=== PATIENT | male | born 1960 | race Two or more races ===

== ENCOUNTER 2017-02-08 05:53 | Day surgery (SDC) | payer BC ==
[~2017-02-08] VITALS: Ht 175.3 cm; Wt 95.3 kg
[2017-02-08] MEDS ORDERED: NKM (06:24)
[2017-02-08 06:25] VITALS: BP 109/60
[2017-02-08] MEDS ORDERED: LR 1000ml 1,000 ML IVLG SCH (07:00)
[2017-02-08] MEDS ORDERED: Midazolam 2mg/2ml Inj ONE (07:00)
[2017-02-08] MEDS ORDERED: Propofol 10mg/ml 20ml IV ONE (07:00)
[2017-02-08] MEDS ORDERED: fentaNYL 100 mcg/2 mL IV ONE (07:00)
--- NOTE | 2017-02-08 07:17 | Short Stay Surgery H&P ---
History of Present Illness History of Present Illness Chief Complaint See H&P HPI Angela Goldsmith is a 56 year old male who was admitted on for Colon Polyps Patient History Allergies: Coded Allergies: No Known Allergies (Unverified , 02/05/17) PAST MEDICAL HISTORY: Past Surgeries: Social History: Medication History Scheduled No Known Medications* (NKM - No Known Medications*), 0 ., (Reported) Physical Exam Vital Signs Last Vital Signs Date Time Temp Pulse Resp B/P Pulse Ox O2 Delivery O2 Flow Rate FiO2 02/08/17 06:25 98.0 66 18 109/60 97 Room Air Plan Attestation Are the patient's medical conditions optimized for surgery? SAJAN MANUEL Feb 08, 2017 07:17
--- NOTE | 2017-02-08 07:18 | Pre-Procedure Note/Attestation ---
Pre-Procedure Note/Attestation Complete Prior to Procedure Planned Procedure: not applicable Procedure Narrative: colon Indications for Procedure Pre-Operative Diagnosis: h/o polyp Attestation I attest that I discussed the nature of the procedure; its benefits; risks and complications; and alternatives (and the risks and benefits of such alternatives ), prior to the procedure, with the patient (or the patient's legal member service representative). I attest that, if there was a reasonable possibility of needing a blood transfusion, the patient (or the patient's legal member service representative) was given the [facility] standardized written summary, pursuant to the [place] Blood Safety Act ([place] Health and Safety Code # 1645, as amended). I attest that I re-evaluated the patient just prior to the surgery and that there has been no change in the patient's H&P, except as documented below: SAJAN MANUEL Feb 08, 2017 07:18
--- NOTE | 2017-02-08 07:35 | Anethesia Preoperative Eval ---
Anesthesia Pre-op PMH/ROS General Date of Evaluation: Feb 08, 2017 Time of Evaluation: 07:00 ASA Score: ASA 2 Mallampati Score Class I : Soft palate, uvula, fauces, pillars visible Class II: Soft palate, uvula, fauces visible Class III: Soft palate, base of uvula visible Class IV: Only hard plate visible Mallampati Classification: Class II Surgeon: Tammy Diagnosis: polyp Surgical Procedure: colonoscopy Anesthesia History: none Family History: no anesthesia problems Allergies: Coded Allergies: No Known Allergies (Unverified , 02/05/17) Anesthesia Pre-op Phys. Exam Physician Exam Last Vital Signs Date Time Temp Pulse Resp B/P Pulse Ox O2 Delivery O2 Flow Rate FiO2 02/08/17 06:25 98.0 66 18 109/60 97 Room Air Constitutional: NAD Neurologic: CN 2-12 intact Cardiovascular: RRR Respiratory: CTA Airway Exam Mallampati Score: Class II MO: full ROM: full Teeth: intact Anesthesia Pre-op A/P Risk Assessment & Plan Status Change Before Surgery: No Pre-Antibiotics Given Within 1 Hr of Incision: Uriel Santa M.D. Feb 08, 2017 07:35
--- NOTE | 2017-02-08 07:37 | Immediate Post-Op Evaluation ---
Immediate Post-Op Evalulation Immediate Post-Op Evalulation Procedure: Colonoscopy Date of Evaluation: Feb 08, 2017 Time of Evaluation: 08:00 IV Fluids: 200 Blood Products: 0 Estimated Blood Loss: 0 Urinary Output: 0 Blood Pressure Systolic: 114 Blood Pressure Diastolic: 70 Pulse Rate: 65 Respiratory Rate: 16 O2 Sat by Pulse Oximetry: 99 Temperature (Fahrenheit): 98 Pain Score (1-10): 0 Nausea: No Vomiting: No Patient Status: awake, reacts, patent Hydration Status: adequate Given Within 1 Hr of Incision: Uriel Santa M.D. Feb 08, 2017 07:37
--- NOTE | 2017-02-08 07:39 | 48 Hour Post Anesthesia Eval ---
Post Anesthesia Evaluation Procedure: Colonoscopy Date of Evaluation: Feb 08, 2017 Time of Evaluation: 08:00 Blood Pressure Systolic: 114 0: 70 Pulse Rate: 65 Respiratory Rate: 16 Temperature (Fahrenheit): 98 O2 Sat by Pulse Oximetry: 99 Airway: patent Nausea: No Vomiting: No Pain Intensity: 0 Hydration Status: adequate Mental Status/LOC: patient returned to baseline Post-Anesthesia Complications: none Follow-up care needed: patient intructions given Uriel Emmanuel M.D. Feb 08, 2017 07:39
[2017-02-08 07:44] VITALS: BP 116/75
[2017-02-08] MEDS ORDERED: Ketorolac 30mg Inj IV PRN (07:45)
[2017-02-08] MEDS ORDERED: Metoclopramide 10mg/2ml Inj IVP PRN (07:45)
[2017-02-08 07:50] VITALS: BP 120/72
[2017-02-08 07:55] VITALS: BP 112/72
--- NOTE | 2017-02-08 07:56 | Endoscopy Procedure Note ---
Endoscopy Procedure Note Indication for Procedure: h/o polyp Procedures Performed: colonoscopy Operative Findings/Diagnosis: R/L diverticulosis, one descend dim polyp bx, rhoid Specimen: yes Pt Tolerated Procedure Well: Yes Estimated Blood Loss: none Anesthesiologist: see notes Anesthesia: MAC Medication Given: see anesthesia record Implant(s) used?: No 50 yrs or older w/o bx or poly: No 10yrs. F/U not recommended: No If not recommended, why?: Inadequate Prep 10 yrs. F/U needed: No 18 years or older w/prev. colo: Yes <3yrs. since last colonoscopy: No Med reason:<3 yrs.: System Reason:<3 yrs.: Last colonoscopy >= to 3yrs: Yes SAJAN MANUEL Feb 08, 2017 07:56
--- NOTE | 2017-02-08 07:58 | Brief Operative Note ---
Immediate Post Operative Note Operative Note Chief Complaint: h/o polyp Pre-op Diagnosis: h/o polyp Procedure: colon ,Bx Post-op Diagnosis: tics, sub optimal prep, dim polyp, rhoid Surgeon: jaron Anesthesiologist: see attached Anesthesia: MAC Specimen: yes Complications: none Condition: stable Estimated Blood Loss: none Drains: none Implant(s) used?: No SAJAN MANUEL Feb 08, 2017 07:58
[2017-02-08] MEDS ORDERED: fentaNYL 100 mcg/2 mL IV PRN (08:00)
[2017-02-08 08:10] VITALS: BP 109/77
[2017-02-08 08:43] VITALS: BP 124/87
--- NOTE | 2017-02-09 03:30 | Operative Note - Dictated ---
DATE OF OPERATION: 02/08/2017 GASTROENTEROLOGY PROCEDURE REPORT PROCEDURE: Colonoscopy with biopsy. SURGEON: Jo-Ann Munoz M.D. ANESTHESIA: Please see the separate anesthesiologist notes for details. PRE-ENDOSCOPIC DIAGNOSIS: History of colonic polyps. POST-ENDOSCOPIC DIAGNOSES: 1. Suboptimal preparation making visualization difficult and smaller polyps could be missed on this examination. 2. Scattered right-sided and left-sided colonic diverticulosis. 3. Diminutive polyp in the descending colon, status post biopsy removal. 4. Mild internal hemorrhoids. PROCEDURE: The procedure, its risks, indications, alternatives, and possible complications including, but not limited to, bleeding, infection, perforation, , and anesthesia complications were explained to the patient. Informed consent was obtained. The patient was then sedated in the left lateral decubitus position and rectal exam was done. The colonoscope was then introduced in the rectum and advanced to the cecum without difficulty. The cecum was identified by the appearance of the ileocecal valve. The colonoscope was then gradually withdrawn. The mucosa examined carefully. Examination of the colonic mucosa revealed poor colonic preparation with solid stool seen especially in the right colon. Smaller polyps in these areas could therefore be missed. There were scattered diverticulosis of the right colon and left colon, which were photographed. There was a diminutive polyp in the proximal descending colon, which was removed with single biopsy forceps application, which was done twice, which were photographed. There was a diminutive polyp in the proximal descending colon, which was removed with the biopsy forceps. Mild internal hemorrhoids were seen on retroflexion of the rectum. The colonoscope was removed. The patient was sent to recovery in good condition. COMPLICATIONS: None. RECOMMENDATIONS: 1. High-fiber diet. 2. Follow up biopsy results. 3. Outpatient follow up. Jo-Ann Munoz M.D. DR: ZAIDA JOB#: [id number] CC: Jo-Ann Munoz M.D.; Fax#: [phone] [facility]
== END 2017-02-08 08:40 | disposition home or self-care (01) ==
LOC: GAS 05:53
DX: D12.4 Benign neoplasm of descending colon (principal); K64.8 Other hemorrhoids; K57.30 Diverticulosis of large intestine without perforation or abscess without bleeding; Z86.010 Personal history of colon polyps
CPT/HCPCS: 45380; J2250; J2704; J3010; 94003; 94150

== ENCOUNTER 2018-06-30 08:39 | Day surgery (SDC) | payer BC ==
[~2018-06-30] VITALS: Ht 177.8 cm; Wt 90.7 kg
[2018-06-30] VITALS (8 sets, daily range): BP systolic 118–137; BP diastolic 74–80
[~2018-06-30 08:39] MED LIST: LR 1000ml 1,000 ML IVLG SCH; NKM
[2018-06-30] MEDS ORDERED: Lidocaine 1% MPF 10mg/ml 5ml ONE (10:00)
[2018-06-30] MEDS ORDERED: LR 1000ml ONE (10:00)
[2018-06-30] MEDS ORDERED: Propofol 200mg/20ml IV ONE (10:00)
[2018-06-30] MEDS ORDERED: LR 1000ml 1,000 ML IVLG SCH (10:08)
--- NOTE | 2018-06-30 10:12 | Anethesia Preoperative Eval ---
Anesthesia Pre-op PMH/ROS General Date of Evaluation: Jun 30, 2018 Time of Evaluation: 10:01 Anesthesiologist: macario ASA Score: ASA 2 Mallampati Score Class I : Soft palate, uvula, fauces, pillars visible Class II: Soft palate, uvula, fauces visible Class III: Soft palate, base of uvula visible Class IV: Only hard plate visible Mallampati Classification: Class II Surgeon: jaron Diagnosis: blood in stool Surgical Procedure: colonoscopy Anesthesia History: none Social History: current smoker Family History: no anesthesia problems Allergies: Coded Allergies: No Known Allergies (Unverified , 06/30/18) Medications: see eMAR Patient NPO?: Yes Past Medical History Pulmonary: Reports: [facility]UL[facility] Narrative: colonoscopy, tonsillectomy Anesthesia Pre-op Phys. Exam Physician Exam Last Vital Signs Date Time Temp Pulse Resp B/P (MAP) Pulse Ox O2 Delivery O2 Flow Rate FiO2 06/30/18 09:11 97.9 82 18 137/80 99 Room Air Constitutional: NAD Neurologic: CN 2-12 intact Cardiovascular: RRR Respiratory: CTA Gastrointestinal: S/NT/ND Airway Exam Mallampati Score: Class II MO: full Neck: flexible TMD: 2fb ROM: full Anesthesia Pre-op A/P Risk Assessment & Plan Assessment: asa2 Plan: mac Status Change Before Surgery: No Pre-Antibiotics Drug: Luz Maria Correa MD Jun 30, 2018 10:12
[2018-06-30] MEDS ORDERED: fentaNYL 100 mcg/2 mL IV PRN (10:15)
[2018-06-30] MEDS ORDERED: Midazolam 2mg/2ml Inj IVP PRN (10:15)
[2018-06-30] MEDS ORDERED: Atropine Inj 1mg/10ml Syr IV PRN (10:15)
[2018-06-30] MEDS ORDERED: DiphenhydrAMINE 50mg/ml Inj IVP PRN (10:15)
--- NOTE | 2018-06-30 10:31 | Pre-Procedure Note/Attestation ---
Pre-Procedure Note/Attestation Complete Prior to Procedure Planned Procedure: not applicable Procedure Narrative: Endoscopy and Colonoscopy Indications for Procedure Pre-Operative Diagnosis: Anemia, hematochezia, FH of gastric CA Attestation I attest that I discussed the nature of the procedure; its benefits; risks and complications; and alternatives (and the risks and benefits of such alternatives ), prior to the procedure, with the patient (or the patient's legal artist representative). I attest that, if there was a reasonable possibility of needing a blood transfusion, the patient (or the patient's legal artist representative) was given the [facility] standardized written summary, pursuant to the [place] Blood Safety Act ([place] Health and Safety Code # 1645, as amended). I attest that I re-evaluated the patient just prior to the surgery and that there has been no change in the patient's H&P, except as documented below: Jo-Ann Munoz MD Jun 30, 2018 10:31
--- NOTE | 2018-06-30 10:32 | Short Stay Surgery H&P ---
History of Present Illness History of Present Illness Chief Complaint See attached H&P which was updated today. Given mild anemia and FH of gastric CA, EGD added to planned colonoscopy. KAYDEN Goldsmith is a 58 year old male who was admitted on for Blood In Stool Patient History Allergies: Coded Allergies: No Known Allergies (Unverified , 06/30/18) Medication History Scheduled No Known Medications* (NKM - No Known Medications*), 0 ., (Reported) Physical Exam Vital Signs Last Vital Signs Date Time Temp Pulse Resp B/P (MAP) Pulse Ox O2 Delivery O2 Flow Rate FiO2 06/30/18 09:11 97.9 82 18 137/80 99 Room Air Plan Attestation Are the patient's medical conditions optimized for surgery? Jo-Ann Munoz MD Jun 30, 2018 10:32
--- NOTE | 2018-06-30 11:32 | Endoscopy Procedure Note ---
Endoscopy Procedure Note General Indication for Procedure: FH of gastric CA. anemia, BRB Procedures Performed: EGD, colonoscopy Operative Findings/Diagnosis: gastric ulcers, antrum submucosal nodule, tics, rhoid Specimen: yes Pt Tolerated Procedure Well: Yes Estimated Blood Loss: none Anesthesia Anesthesiologist: Kadeem Metcalf Anesthesia: MAC Medications Medication Given: see anesthesia record Inserted Devices Implant(s) used?: No GI Core Measures 50 yrs or older w/o bx or poly: Not Applicable 10yrs. F/U not recommended: Not Applicable If not recommended, why?: Jo-Ann Munoz MD Jun 30, 2018 11:32
--- NOTE | 2018-06-30 11:33 | Brief Operative Note ---
Immediate Post Operative Note Operative Note Chief Complaint: FH of gastric CA, anemia, BRB Pre-op Diagnosis: Anemia, hematochezia, FH of gastric CA Procedure: EGD, Bx, Colon Post-op Diagnosis: gastric ulcers, antrum submucosal nodule, tics, rhoid Surgeon: jaron Anesthesiologist: Kadeem Metcalf Anesthesia: MAC Specimen: yes Complications: none Condition: stable Fluids: recorded Estimated Blood Loss: none Drains: none Implant(s) used?: No Jo-Ann Munoz MD Jun 30, 2018 11:33
--- NOTE | 2018-06-30 11:34 | Brief Operative Note ---
Immediate Post Operative Note Operative Note Chief Complaint: FH of gastric CA, anemia, BRB Pre-op Diagnosis: Anemia, hematochezia, FH of gastric CA Procedure: EGD, Bx, Colon Post-op Diagnosis: gastric ulcers, antrum submucosal nodule, tics, rhoid Surgeon: jaron Anesthesiologist: kennedy maldonado Anesthesia: MAC Specimen: yes Complications: none Condition: stable Fluids: recorded Estimated Blood Loss: none Drains: none Implant(s) used?: No Jo-Ann Munoz MD Jun 30, 2018 11:34
--- NOTE | 2018-06-30 12:30 | Immediate Post-Op Evaluation ---
Immediate Post-Op Evalulation Immediate Post-Op Evalulation Procedure: egd/colonoscopy/bx Date of Evaluation: Jun 30, 2018 Time of Evaluation: 11:32 IV Fluids: 500ml 0.9ns Blood Products: none Estimated Blood Loss: negligible Blood Pressure Systolic: 124 Blood Pressure Diastolic: 78 Pulse Rate: 83 Respiratory Rate: 18 O2 Sat by Pulse Oximetry: 100 Temperature (Fahrenheit): 97.3 Pain Score (1-10): 0 Nausea: No Vomiting: No Complications none Patient Status: awake, reacts, patent Hydration Status: adequate Drug: Luz Maria Correa MD Jun 30, 2018 12:30
--- NOTE | 2018-06-30 12:30 | 48 Hour Post Anesthesia Eval ---
Post Anesthesia Evaluation Procedure: egd/colonoscopy/bx Date of Evaluation: Jun 30, 2018 Time of Evaluation: 11:34 Blood Pressure Systolic: 123 0: 77 Pulse Rate: 83 Respiratory Rate: 18 Temperature (Fahrenheit): 97.3 O2 Sat by Pulse Oximetry: 99 Airway: patent Nausea: No Vomiting: No Pain Intensity: 0 Hydration Status: adequate Cardiopulmonary Status: stable Mental Status/LOC: patient returned to baseline Post-Anesthesia Complications: none Follow-up care needed: N/A Luz Maria Rogers MD Jun 30, 2018 12:30
--- NOTE | 2018-06-30 23:30 | Operative Note - Dictated ---
DATE OF OPERATION: 06/30/2018 PROCEDURE: Upper gastrointestinal endoscopy with biopsy as well as colonoscopy. SURGEON: Jo-Ann Munoz M.D. ANESTHESIA: Please see the separate anesthesiologist notes for details. PRE-ENDOSCOPIC DIAGNOSES: 1. Family history of gastric cancer. 2. Mild anemia. 3. Hematochezia. POST-ENDOSCOPIC DIAGNOSES: 1. Scattered shallow ulcerations in the antrum status post biopsy. 2. Faint 1 to 2 cm submucosal antral nodule status post biopsy. 3. Status post random biopsies of the gastric body and fundus. 4. Right-sided and left-sided diverticulosis. 5. Normal terminal ileum to 10 cm. 6. Mild internal hemorrhoids. DESCRIPTION OF PROCEDURE: The procedure, its risks, indications, alternatives, and possible complications were explained and an informed consent was obtained. The diagnostic upper endoscope was introduced through the oropharynx and advanced to the duodenum. It was gradually withdrawn and then the colonoscope was introduced into the rectum and advanced to 10 cm into the terminal ileum. It was gradually withdrawn and concluded with the retroflex view of the rectum. The findings and endoscopy and colonoscopy are as listed above. The patient was sent to recovery in good condition. COMPLICATIONS: None. RECOMMENDATIONS: 1. Follow up biopsy results. 2. Check and treat for Helicobacter pylori if positive. 3. Add proton pump inhibitor for two months to heal ulcers. 4. We will consider repeat endoscopy in 3 months. Jo-Ann Munoz M.D. DR: SANDEEP JOB#: [id number] CC:
== END 2018-06-30 12:15 | disposition home or self-care (01) ==
LOC: GAS 08:39
DX: K92.1 Melena (principal); K57.30 Diverticulosis of large intestine without perforation or abscess without bleeding; K64.8 Other hemorrhoids; Z86.010 Personal history of colon polyps; K25.9 Gastric ulcer, unspecified as acute or chronic, without hemorrhage or perforation; K29.70 Gastritis, unspecified, without bleeding; B96.81 Helicobacter pylori [H. pylori] as the cause of diseases classified elsewhere; Z80.0 Family history of malignant neoplasm of digestive organs; D64.9 Anemia, unspecified; F17.200 Nicotine dependence, unspecified, uncomplicated; G47.33 Obstructive sleep apnea (adult) (pediatric); E66.9 Obesity, unspecified; M65.4 Radial styloid tenosynovitis [de Quervain]
CPT/HCPCS: 43239; 45378; J2704; 94003; 94150